=== PATIENT | female | born 1965 | race African-American/Black ===

== ENCOUNTER → 2017-02-04 | Outpatient (CLI) | payer OTHER ==
[2016-09-25 11:05] VITALS: BP 142/97
[~2017-02-04] MED LIST: AMIT100T PO; ATEN50TA PO; BACL20TA PO; BUDE10.22 IH; BUSP15TA PO; CHOL20004 PO; CHOL500015 PO; CYCL10TA2 PO; DICL50TA2 PO; FLUO40CA9 PO; FLUT16SP2 NS; FURO-69 PO; GABA-586 PO; HYDR-971 PO; IBUP-1060 PO; LEVO200T PO; LIDO700A4 TP; LORA10TA3 PO; LOSA25TA4 PO; MILN1TAB PO; POTA20TA12 PO; PRED20TA PO; PROAIR HFA8.5 GM INH; QUET100T4 PO; RANI150T2 PO; TRAM50TA PO; TRAZ100T12 PO; VENL75CA PO; VENTOLIN HFA18 GM INH
--- NOTE | 2017-02-04 16:03 | KCIC ---
PROCEDURE MRI cervical spine without contrast. HISTORY Radiculopathy. Prior surgery. Symptoms have been present for a few months and are greater on the right. TECHNIQUE Sagittal T1, sagittal T2, sagittal STIR, axial T2, and axial T2 gradient sequences are provided. COMPARISON June 26, 2007. FINDINGS There is straightening of cervical lordosis but no subluxation. There is no marrow edema or worrisome marrow lesion. There is anterior cervical fusion which results in hardware artifact from C5 through C7. There is no cord signal abnormality. The cervicomedullary junction is unremarkable. Degenerative findings by individual level are as follows: C2-C3: There is uncinate process spurring and there is left facet hypertrophy. There is high-grade left and [id number] right foraminal narrowing C3-C4: Uncinate process spurring is greater on the right. There is a minimal disc bulge. There is no canal stenosis. There is mild to moderate right foraminal narrowing. C4-C5: Disc osteophyte complex and uncinate process spurring are noted. There is mild facet hypertrophy. Midline AP diameter of the thecal sac is 9 millimeters. This is mildly decreased and this is a change from prior. There is high-grade bilateral foraminal narrowing. C5-C6: There is hardware artifact. There is no definite canal or foraminal compromise. C6-C7: There is no definite canal or foraminal compromise. C7-T1: There is a disc bulge without canal or foraminal compromise T1-T2: There is no canal or foraminal compromise. T2-T3: There is left facet hypertrophy and probably mild left foraminal narrowing, level only evaluated in the sagittal plane. IMPRESSION 1. Degenerative changes in the cervical spine are most notable at C4-C5. 2. Anterior cervical fusion results in hardware artifact from C5 through C7. Electronically signed by: Fuentes Paredes MD (Feb 04, 2017 16:02:06)
== END | disposition home or self-care (01) ==
LOC: KCIC MRI 14:24
PROVIDERS: ATTEND Neurological Surgery
DX: M47.892 Other spondylosis, cervical region (principal); M43.22 Fusion of spine, cervical region
CPT/HCPCS: 72141

== ENCOUNTER 2017-02-12 20:50 | Emergency (ER) | payer OTHER ==
[~2017-02-12] VITALS: Ht 167.6 cm; Wt 90.7 kg
[2017-02-12 21:08] LABS: BILIRUBIN,URINE NEGATIVE (NEG); GLUCOSE,URINE NEGATIVE (NEG); NITRITE,URINE NEGATIVE (NEG); PROTEIN,URINE NEGATIVE (NEG-TRACE); UROBILINOGEN,URINE 0.2 mg/dL (0.2 mg/dL)
[2017-02-12 21:14] LABS: BACTERIA,URINE FEW /HPF (0-FEW); RBC,URINE OCC /HPF (0-2); SQUAMOUS EPITHELIAL CELL,UR MOD /LPF
--- NOTE | 2017-02-12 21:27 | PHYS DOC ---
Past Medical History Past Medical History: Anxiety, Arthritis, COPD, Depression, Fibromyalgia, Hypertension, Sciatica, Sinusitis, Other Additional Past Medical Histor: Vit D deficiency, prediabetic, back pain, SPINAL STEN, drug seeking behavio Past Surgical History: Other Additional Past Surgical Histo: thyroid removed, UTERINE ABLATION, R hand sugery, carpal tunnel Alcohol Use: Occasionally Drug Use: None Adult General Chief Complaint Chief Complaint: BACK PAIN OR INJURY HPI HPI Patient is a 51 year old female who presents with complaint of severe back pain. Patient states that her pain started earlier today. Patient does not remember any inciting injury or trauma to her back. Patient does have history of low back pain and sciatica. Patient states that her pain is confined to her low back and left flank. Patient denies any abdominal pain, nausea, vomiting, fevers, or diarrhea. Patient is not experiencing any loss of sensation to her lower extremities, groin, or loss of bowel or bladder control. Patient rates pain as 8 out of 10. Patient has taken ibuprofen with no relief at home. Patient states that she has followed in the pain management clinic. Patient last was seen in pain management clinic in September 2016. Patient states currently she is following with Dr. Tran of neurosurgery due to complications with degenerative disease of the cervical spine. Review of Systems Review of Systems Constitutional: Denies fever or chills [] Eyes: Denies change in visual acuity, redness, or eye pain [] HENT: Denies nasal congestion or sore throat [] Respiratory: Denies cough or shortness of breath [] Cardiovascular: Denies chest pain or edema [] GI: Denies abdominal pain, nausea, vomiting, bloody stools or diarrhea [] : Denies dysuria or hematuria [] Musculoskeletal: Back pain [] Integument: Denies rash or skin lesions [] Neurologic: Denies headache, focal weakness or sensory changes [] Current Medications Current Medications Current Medications Medications (Trade) Dose Ordered Sig/Marito Start Time Stop Time Status Last Admin Dose Admin Acetaminophen/ Hydrocodone Bitart (Lortab 10/325) 1 tab 1X ONCE 02/12/17 22:00 02/12/17 22:01 DC 02/12/17 21:34 1 TAB Orphenadrine Citrate (Norflex) 60 mg 1X ONCE 02/12/17 22:00 02/12/17 22:01 DC 02/12/17 21:34 60 MG Prednisone (Prednisone) 40 mg 1X ONCE 02/12/17 22:00 02/12/17 22:01 DC 02/12/17 21:34 40 MG Allergies Allergies Allergies Coded Allergies Type Severity Reaction Last Updated Verified aspirin Allergy Unknown DICLOFENAC is home med 09/25/16 Yes Physical Exam Physical Exam Constitutional: Alert, afebrile, appears in moderate to severe discomfort. [] HENT: Normocephalic, atraumatic, bilateral external ears normal, oropharynx moist, no oral exudates, nose normal. [] Eyes: PERRLA, EOMI, conjunctiva normal, no discharge. [] Neck: Normal range of motion, no tenderness, supple, no stridor. [] Cardiovascular:Heart rate regular rhythm, no murmur [] Lungs & Thorax: Bilateral breath sounds clear to auscultation [] Abdomen: Bowel sounds normal, soft, no tenderness, no masses, no pulsatile masses. [] Skin: Warm, dry, no erythema, no rash. [] Back: No midline tenderness, left paraspinous muscle tenderness along mid and lower lumbar spine, no CVA tenderness, no flank ecchymosis. [] Extremities: No tenderness, no cyanosis, no clubbing, ROM intact, no edema. [] Neurologic: Alert and oriented X 3, normal motor function, normal sensory function, no focal deficits noted. [] Current Patient Data Vital Signs Vital Signs Date Time Temp Pulse Resp B/P Pulse Ox O2 Delivery O2 Flow Rate FiO2 02/12/17 21:33 64 18 157/89 94 Room Air 02/12/17 21:06 97.6 97.6 Lab Values Laboratory Tests Test 02/12/17 21:00 Urine Collection Type Unknown Urine Color Yellow Urine Clarity Clear Urine pH 6.0 Urine Specific [place] 1.010 Urine Protein Negativemg/dL (NEG-TRACE) Urine Glucose (UA) Negativemg/dL (NEG) Urine Ketones (Stick) Negativemg/dL (NEG) Urine Blood Negative (NEG) Urine Nitrite Negative (NEG) Urine Bilirubin Negative (NEG) Urine Urobilinogen Dipstick 0.2mg/dL (0.2 mg/dL) Urine Leukocyte Esterase Negative (NEG) Urine RBC Occ/HPF (0-2) Urine WBC 1-4/HPF (0-4) Urine Squamous Epithelial Cells Mod/LPF Urine Bacteria Few/HPF (0-FEW) EKG EKG Not performed [] Radiology/Procedures Radiology/Procedures Not performed [] Course & Med Decision Making Course & Med Decision Making Pertinent Labs and Imaging studies reviewed. (See chart for details) Patient was given IM Norflex, oral [place], and Prednisone. On reevaluation, patient states that she feels better at this time and would like to go home. The patient will be discharged with prescriptions for [place], Flexeril, and prednisone. Advise follow-up in 3-5 days with patient's primary doctor and return to the emergency department for any worsening symptoms. Patient voiced understanding and in agreement with treatment plan. Dragon Disclaimer Dragon Disclaimer This electronic medical record was generated, in whole or in part, using a voice recognition dictation system. Departure Departure Impression: Primary Impression: Low back strain Disposition: 01 HOME, SELF-CARE Condition: IMPROVED Referrals: NO PCP (PCP) Patient Instructions: Back Pain, Adult Additional Instructions: Follow-up with your primary doctor in 3-5 days. Return to the emergency department for any worsening symptoms. Scripts Prednisone 20 Mg Tablet1 Tab PO BID #8 TAB Prov:CHANELL DUCKWORTH MD 02/12/17 Cyclobenzaprine Hcl 10 Mg Tablet1 Tab PO TID PRN MUSCLE SPASMS #30 TAB Prov:CHANELL DUCKWORTH MD 02/12/17 Hydrocodone/Apap 5-325 ([place] 5-325 Tablet)1 Each Tablet1-2 Tab PO Q4-6HRS PRN PAIN #20 TAB Prov:CHANELL DUCKWORTH MD 02/12/17 Problem Qualifiers Primary Impression: Low back strain Encounter type: initial encounter Qualified Code: S39.012A - Strain of muscle, fascia and tendon of lower back, initial encounter CHANELL DUCKWORTH MD Feb 12, 2017 21:27
[2017-02-12 21:33] VITALS: BP 157/89
[2017-02-12] MEDS ORDERED: predniSONE 20 MG TABLET PO ONE (22:00)
[2017-02-12] MEDS ORDERED: HYDROCODONE/APAP 10/325 TABLET. PO ONE (22:00)
[2017-02-12] MEDS ORDERED: ORPHENADRINE CITRATE 60 MG/2 ML VIAL. IM ONE (22:00)
[2017-02-12] MEDS ORDERED: PRED20TA PO (22:19)
[2017-02-12] MEDS ORDERED: CYCL10TA2 PO (22:19)
[2017-02-12] MEDS ORDERED: HYDR-971 PO (22:19)
== END 2017-02-12 22:25 | disposition home or self-care (01) ==
LOC: ER 20:50
DX: S39.012A Strain of muscle, fascia and tendon of lower back, initial encounter (principal); F32.9 Major depressive disorder, single episode, unspecified; F41.9 Anxiety disorder, unspecified; I10 Essential (primary) hypertension; J44.9 Chronic obstructive pulmonary disease, unspecified; M79.7 Fibromyalgia; M19.90 Unspecified osteoarthritis, unspecified site; Z88.6 Allergy status to analgesic agent
CPT/HCPCS: 81001; 81025; 96372; 99284; J2360; J7512

== ENCOUNTER 2017-05-08 23:50 | Emergency (ER) | payer OTHER ==
[~2017-05-08] VITALS: Ht 167.6 cm; Wt 90.7 kg
[~2017-05-08 23:50] MED LIST changes: -CHOL20004 PO; +CHOL200074 PO; -CHOL500015 PO; +CHOL500045 PO
[2017-05-09 00:27] VITALS: BP 184/102
[2017-05-09] MEDS ORDERED: HYDR-971 PO (00:49)
[2017-05-09] MEDS ORDERED: CYCL5TAB PO (00:49)
--- NOTE | 2017-05-09 00:49 | PHYS DOC ---
Past Medical History Past Medical History: Anxiety, Arthritis, COPD, Depression, Fibromyalgia, Hypertension, Sciatica, Sinusitis, Other Additional Past Medical Histor: Vit D deficiency, prediabetic, back pain, SPINAL STEN, drug seeking behavio Past Surgical History: Other Additional Past Surgical Histo: thyroid removed, UTERINE ABLATION, R hand sugery, carpal tunnel Alcohol Use: Occasionally Drug Use: None Adult General Chief Complaint Chief Complaint: LOWER BACK PAIN OR INJURY HPI HPI Patient is a 51 year old female who presents with lower back pain that feels like exacerbation of sciatica. She reports 2 day history of increased radiating pain from lower back to RLE. She denies specific injury. She denies fevers/chills, abdominal pain, bowel/bladder incontinence/retention, saddle anesthesia, lower extremity numbness/weakness, dysuria/hematuria. Review of Systems Review of Systems Constitutional: Denies fever or chills HENT: Denies nasal congestion or sore throat Respiratory: Denies cough or shortness of breath Cardiovascular: Denies chest pain GI: Denies abdominal pain, nausea, vomiting : Denies dysuria or hematuria Musculoskeletal: Reports back pain Integument: Denies rash Neurologic: Denies headache, focal weakness or sensory changes Current Medications Current Medications Current Medications Medications (Trade) Dose Ordered Sig/Marito Start Time Stop Time Status Last Admin Dose Admin Acetaminophen/ Hydrocodone Bitart (Lortab 5/325) 2 tab 1X ONCE 05/09/17 01:00 05/09/17 01:01 DC 05/09/17 00:53 2 TAB Cyclobenzaprine HCl (Flexeril) 10 mg 1X ONCE 05/09/17 01:00 05/09/17 01:01 DC 05/09/17 00:53 10 MG Allergies Allergies Allergies Coded Allergies Type Severity Reaction Last Updated Verified aspirin Allergy Mild DICLOFENAC is home med 05/09/17 Yes Physical Exam Physical Exam Constitutional: obese, no acute distress, non-toxic appearance. HENT: Normocephalic, atraumatic, bilateral external ears normal, oropharynx moist, nose normal. Eyes: conjunctiva normal, no discharge. Neck: supple, no stridor. Cardiovascular: RRR, no murmurs, no edema. Lungs & Thorax: LCTAB, no wheezing, no respiratory distress. Abdomen: soft, nontender, nondistended. Skin: Warm, dry, no erythema, no rash. Back: no focal spinal tenderness, no CVA tenderness, right buttock & hip tenderness without overlying skin changes, pain increases with straight leg raise. Extremities: distal pulses intact bilaterally to lower extremities, symmetric strength/sensation to lower extremities. Neurologic: Alert and oriented X 3, no focal deficits noted. Psychologic: Affect normal, judgement normal, mood normal. Current Patient Data Vital Signs Vital Signs Date Time Temp Pulse Resp B/P (MAP) Pulse Ox O2 Delivery O2 Flow Rate FiO2 05/09/17 00:53 Room Air 05/09/17 00:27 97.8 69 16 100 97.8 EKG EKG [] Radiology/Procedures Radiology/Procedures [] Course & Med Decision Making Course & Med Decision Making Pertinent Labs and Imaging studies reviewed. (See chart for details) The patient presents with exacerbation of sciatica. Recommend rest but not bedrest, ice/heat, ibuprofen TID, flexeril for muscle spasm & norco for severe breakthrough pain. No drinking alcohol or driving while taking norco. Follow up with PCP if not improving in 1-2 weeks. Come back for symptoms of cauda equina syndrome or otherwise worsening condition. Discharged home in stable condition. [] Dragon Disclaimer Dragon Disclaimer This electronic medical record was generated, in whole or in part, using a voice recognition dictation system. Departure Departure Impression: Primary Impression: Sciatica Disposition: 01 HOME, SELF-CARE Condition: STABLE Referrals: NO PCP (PCP) Patient Instructions: Sciatica, [id number] Additional Instructions: You were seen in the emergency department today for sciatica. Please try to stretch, use heating pad. Take ibuprofen. Use Flexeril for muscle spasm and [place] for severe breakthrough pain. No drinking alcohol or driving while taking [place]. Follow-up with primary care physician if symptoms persist in one week. Return to the emergency department for loss of control of bowels or bladder, numbness in the groin, numbness or weakness in legs, any otherwise worsening condition. Scripts Hydrocodone/Apap 5-325 (NORCO 5-325 TABLET) 1 Each Tablet 1 TAB PO PRN Q6HRS Y for PAIN, #10 TAB 0 Refills Prov: JAMES MAHARAJ MD 05/09/17 Cyclobenzaprine Hcl (CYCLOBENZAPRINE HCL) 5 Mg Tablet 1 TAB PO TID Y for MUSCLE SPASMS, #10 TAB Prov: JAMES MAHARAJ MD 05/09/17 JAMES MAHARAJ MD May 09, 2017 00:49
[2017-05-09] MEDS ORDERED: CYCLOBENZAPRINE 10 MG TABLET. PO ONE (01:00)
[2017-05-09] MEDS ORDERED: HYDROcodone/APAP 5/325MG 1 TAB TABLET PO ONE (01:00)
== END 2017-05-09 00:55 | disposition home or self-care (01) ==
LOC: ER 23:50
DX: M54.41 Lumbago with sciatica, right side (principal); F41.9 Anxiety disorder, unspecified; M19.90 Unspecified osteoarthritis, unspecified site; J44.9 Chronic obstructive pulmonary disease, unspecified; F32.9 Major depressive disorder, single episode, unspecified; M79.7 Fibromyalgia; I10 Essential (primary) hypertension; E66.9 Obesity, unspecified; Z88.6 Allergy status to analgesic agent; Z68.32 Body mass index [BMI] 32.0-32.9, adult
CPT/HCPCS: 99283

== ENCOUNTER 2017-05-23 10:12 | Emergency (ER) | payer OTHER ==
[~2017-05-23] VITALS: Ht 167.6 cm; Wt 90.7 kg
[~2017-05-23 10:12] MED LIST changes: +CYCL5TAB PO
[2017-05-23 10:58] LABS: BASO % 0 % (0-3); EOS % 1 % (0-3); HEMOGLOBIN 13.4 g/dL (12.0-15.5); LYMPH % 28 % (24-48); MEAN CORPUSCULAR HEMOGLOBIN 29 pg (25-35); MEAN CORPUSCULAR HGB CONC 34 g/dL (31-37); MEAN CORPUSCULAR VOLUME 85 fL (79-100); MONO % 7 % (0-9); NEUT % 64 % (31-73); PLATELET COUNT 255 x10^3/uL (140-400); RED BLOOD COUNT 4.59 x10^6/uL (3.50-5.40); RED CELL DISTRIBUTION WIDTH 13.6 % (11.5-14.5); WHITE BLOOD COUNT 7.2 x10^3/uL (4.0-11.0)
[2017-05-23 10:58] LABS: BILIRUBIN,URINE NEGATIVE (NEG); GLUCOSE,URINE NEGATIVE (NEG); NITRITE,URINE NEGATIVE (NEG); PH,URINE 6.5; PROTEIN,URINE NEGATIVE (NEG-TRACE); UROBILINOGEN,URINE 0.2 mg/dL (0.2 mg/dL)
[2017-05-23] MEDS ORDERED: MORPHINE SULFATE 10 MG/ML VIAL. IV ONE (11:15)
[2017-05-23] MEDS ORDERED: diazePAM 5 MG TABLET PO ONE (11:15)
[2017-05-23 11:22] LABS: RBC,URINE 0 /HPF (0-2)
[2017-05-23 11:23] LABS: BACTERIA,URINE MODERATE /HPF (0-FEW); SQUAMOUS EPITHELIAL CELL,UR MOD /LPF; WBC,URINE OCC /HPF (0-4)
[2017-05-23 11:52] LABS: CALCIUM 8.5 mg/dL (8.5-10.1); CREATININE 0.8 mg/dL (0.6-1.0); GFR 92.2; POTASSIUM 3.8 mmol/L (3.5-5.1)
[2017-05-23 11:58] LABS: ALBUMIN 3.7 g/dL (3.4-5.0); TOTAL BILIRUBIN 0.5 mg/dL (0.2-1.0); TOTAL PROTEIN 7.3 g/dL (6.4-8.2)
[2017-05-23 12:38] VITALS: BP 109/65
--- NOTE | 2017-05-23 12:50 | RAD ---
Indication bilateral flank pain for 3 days. Noncontrast images through the abdomen and pelvis were obtained. Note is made of a previous examination 7 years ago. An acute finding at either lung base is not seen. There is some minimal irregularity at the right lung base laterally, on the first 4 images, which is probably chronic and reflective of scar. Other etiologies are not entirely excluded. Clinical correlation as to the necessity for additional imaging or follow-up advised. The liver and spleen appear unremarkable. The gallbladder appears grossly normal. No significant pancreatic abnormality is seen. There is a very slightly prominent pancreatic duct. No adrenal anomalies are seen and the kidneys appear unremarkable. The left kidney is slightly larger than the right similar to the previous exam. There are no renal calculi seen on either side. There is no hydronephrosis hydroureter or calcification seen along the course of either ureter. The appendix is seen in the right lower quadrant and appears unremarkable. No acute finding is seen in the pelvis. IMPRESSION: No acute or significant finding seen in the abdomen or pelvis. Probable scarring right lung base. See above discussion PQRS Compliance Statement: One or more of the following individualized dose reduction techniques were utilized for this examination: 1. Automated exposure control 2. Adjustment of the mA and/or kV according to patient size 3. Use of iterative reconstruction technique
[2017-05-23] MEDS ORDERED: METH-37 PO (13:08)
--- NOTE | 2017-05-23 13:09 | PHYS DOC ---
Past Medical History Past Medical History: Anxiety, Arthritis, COPD, Depression, Fibromyalgia, Hypertension, Sciatica, Sinusitis, Other Additional Past Medical Histor: Vit D deficiency, prediabetic, back pain, SPINAL STEN, drug seeking behavio Past Surgical History: Other Additional Past Surgical Histo: thyroid removed, UTERINE ABLATION, R hand sugery, carpal tunnel Alcohol Use: Occasionally Drug Use: None Adult General Chief Complaint Chief Complaint: FLANK PAIN HPI HPI Patient is a 51 year old female with history of fibromyalgia, hypertension, depression, anxiety, who presents today complaining of moderate bilateral mid back pain nonradiating in nature worse on movement that began 3 days ago. Patient denies any loss of bowel bladder function. She states she also has history of chronic back pain. Patient denies any trauma. She states she just came from the mother-baby floor where her daughter gave . Review of Systems Review of Systems Constitutional: Denies fever or chills [] Eyes: Denies change in visual acuity, redness, or eye pain [] HENT: Denies nasal congestion or sore throat [] Respiratory: Denies cough or shortness of breath [] Cardiovascular: No additional information not addressed in HPI [] GI: Denies abdominal pain, nausea, vomiting, bloody stools or diarrhea [] : Denies dysuria or hematuria [] Musculoskeletal: back pain Integument: Denies rash or skin lesions [] Neurologic: Denies headache, focal weakness or sensory changes [] Endocrine: Denies polyuria or polydipsia [] Current Medications Current Medications Current Medications Medications (Trade) Dose Ordered Sig/Marito Start Time Stop Time Status Last Admin Dose Admin Diazepam (Valium) 5 mg 1X ONCE 05/23/17 11:15 05/23/17 11:16 DC 05/23/17 10:52 5 MG Morphine Sulfate 5 mg 1X ONCE 05/23/17 11:15 05/23/17 11:16 DC 05/23/17 10:52 5 MG Allergies Allergies Allergies Coded Allergies Type Severity Reaction Last Updated Verified aspirin Allergy Mild DICLOFENAC is home med 05/09/17 Yes Physical Exam Physical Exam Constitutional: Well developed, well nourished, no acute distress, non-toxic appearance. [] HENT: Normocephalic, atraumatic, bilateral external ears normal, oropharynx moist, no oral exudates, nose normal. [] Eyes: PERRLA, EOMI, conjunctiva normal, no discharge. [] Neck: Normal range of motion, no tenderness, supple, no stridor. [] Cardiovascular:Heart rate regular rhythm, no murmur [] Lungs & Thorax: Bilateral breath sounds clear to auscultation [] Abdomen: Bowel sounds normal, soft, no tenderness, no masses, no pulsatile masses. [] Skin: Warm, dry, no erythema, no rash. [] Back: No tenderness, no CVA tenderness. [] Extremities: No tenderness, no cyanosis, no clubbing, ROM intact, no edema. [] Neurologic: Alert and oriented X 3, normal motor function, normal sensory function, no focal deficits noted. [] Psychologic: Affect normal, judgement normal, mood normal. [] Current Patient Data Vital Signs Vital Signs Date Time Temp Pulse Resp B/P (MAP) Pulse Ox O2 Delivery O2 Flow Rate FiO2 05/23/17 11:27 66 120/69 (86) 100 Room Air 05/23/17 10:52 20 05/23/17 10:19 97.9 97.9 Lab Values Laboratory Tests Test 05/23/17 09:38 05/23/17 10:30 05/23/17 10:50 05/23/17 11:40 POC Urine HCG, Qualitative Hcg negative (Negative) Urine Collection Type Unknown Urine Color Yellow Urine Clarity Clear Urine pH 6.5 Urine Specific [place] 1.015 Urine Protein Negative mg/dL (NEG-TRACE) Urine Glucose (UA) Negative mg/dL (NEG) Urine Ketones (Stick) Negative mg/dL (NEG) Urine Blood Negative (NEG) Urine Nitrite Negative (NEG) Urine Bilirubin Negative (NEG) Urine Urobilinogen Dipstick 0.2 mg/dL (0.2 mg/dL) Urine Leukocyte Esterase Trace (NEG) Urine RBC 0 /HPF (0-2) Urine WBC Occ /HPF (0-4) Urine Squamous Epithelial Cells Mod /LPF Urine Bacteria Moderate /HPF (0-FEW) Urine Mucus Mod /LPF White Blood Count 7.2 x10^3/uL (4.0-11.0) Red Blood Count 4.59 x10^6/uL (3.50-5.40) Hemoglobin 13.4 g/dL (12.0-15.5) Hematocrit 39.0 % (36.0-47.0) Mean Corpuscular Volume 85 fL (79-100) Mean Corpuscular Hemoglobin 29 pg (25-35) Mean Corpuscular Hemoglobin Concent 34 g/dL (31-37) Red Cell Distribution Width 13.6 % (11.5-14.5) Platelet Count 255 x10^3/uL (140-400) Neutrophils (%) (Auto) 64 % (31-73) Lymphocytes (%) (Auto) 28 % (24-48) Monocytes (%) (Auto) 7 % (0-9) Eosinophils (%) (Auto) 1 % (0-3) Basophils (%) (Auto) 0 % (0-3) Neutrophils # (Auto) 4.6 x10^3uL (1.8-7.7) Lymphocytes # (Auto) 2.0 x10^3/uL (1.0-4.8) Monocytes # (Auto) 0.5 x10^3/uL (0.0-1.1) Eosinophils # (Auto) 0.0 x10^3/uL (0.0-0.7) Basophils # (Auto) 0.0 x10^3/uL (0.0-0.2) Sodium Level 142 mmol/L (136-145) Potassium Level 3.8 mmol/L (3.5-5.1) Chloride Level 106 mmol/L (98-107) Carbon Dioxide Level 29 mmol/L (21-32) Anion Gap 7 (6-14) Blood Urea Nitrogen 11 mg/dL (7-20) Creatinine 0.8 mg/dL (0.6-1.0) Estimated GFR (Cockcroft-Gault) 92.2 BUN/Creatinine Ratio 14 (6-20) Glucose Level 105 mg/dL (70-99) H Calcium Level 8.5 mg/dL (8.5-10.1) Total Bilirubin 0.5 mg/dL (0.2-1.0) Aspartate Amino Transferase (AST) 11 U/L (15-37) L Alanine Aminotransferase (ALT) 15 U/L (14-59) Alkaline Phosphatase 71 U/L (46-116) Total Protein 7.3 g/dL (6.4-8.2) Albumin 3.7 g/dL (3.4-5.0) Albumin/Globulin Ratio 1.0 (1.0-1.7) Lipase 293 U/L (73-393) Laboratory Tests 05/23/17 10:50 Laboratory Tests 05/23/17 11:40 EKG EKG [] Radiology/Procedures Radiology/Procedures [] Course & Med Decision Making Course & Med Decision Making Pertinent Labs and Imaging studies reviewed. (See chart for details) This is a 51-year-old female patient presenting today for bilateral thoracic pain. She was worked up for kidney stone and UTI which were negative. She was discharged with Robaxin. She is instructed follow up with her own PCP in 1-2 weeks. Dragon Disclaimer Dragon Disclaimer This electronic medical record was generated, in whole or in part, using a voice recognition dictation system. Departure Departure Impression: Primary Impression: Thoracic back pain Disposition: HOME, SELF-CARE Condition: STABLE Referrals: UNKNOWN PCP NAME (PCP) Follow-up with the primary care doctor as soon as he can Patient Instructions: Back Pain, Adult Additional Instructions: You were seen for thoracic back pain. Your work up in the emergency room including CT was negative for any acute findings. Take the prescribed medicines as needed and follow-up with your doctor as soon as you can. Scripts Methocarbamol (ROBAXIN) 500 Mg Tablet 1 TAB PO TID, #20 TAB Prov: LIBBY LARKIN MARCIA 05/23/17 Problem Qualifiers Primary Impression: Thoracic back pain Chronicity: acute Back pain laterality: bilateral Qualified Codes: M54.6 - Pain in thoracic spine LIBBY LARKIN MARCIA May 23, 2017 13:08
== END 2017-05-23 13:19 | disposition home or self-care (01) ==
LOC: ER 10:12
DX: M54.6 Pain in thoracic spine (principal); G89.29 Other chronic pain; M19.90 Unspecified osteoarthritis, unspecified site; J44.9 Chronic obstructive pulmonary disease, unspecified; M79.7 Fibromyalgia; F32.9 Major depressive disorder, single episode, unspecified; I10 Essential (primary) hypertension; G56.00 Carpal tunnel syndrome, unspecified upper limb; Z88.6 Allergy status to analgesic agent
CPT/HCPCS: 36415; 74176; 80053; 81001; 81025; 83690; 85027; 87086; 96374; 99285; J2270

== ENCOUNTER → 2017-06-07 | Outpatient (CLI) | payer OTHER ==
[2017-05-23 12:38] VITALS: BP 109/65
[~2017-06-07] MED LIST changes: +METH-37 PO
--- NOTE | 2017-06-07 11:51 | KCIC ---
MRI Lumbar Spine without contrast History: Low back pain radiating into both legs Technique: Multiplanar, multi sequential noncontrast MR imaging was performed of the lumbar spine. Contrast: None Comparison: None Findings: Lumbar vertebral body stature and AP alignment are maintained. Conus terminates at L2. There is mild degenerative disc disease L5-S1, mild disc desiccation L3-4 and L4-5. There is no significant marrow edema. L3-L4: There is prominence of posterior epidural fat. There is mild buckling of the ligamentum flavum and [id number] facet hypertrophic change. Spinal canal and neural foramina are adequate. L4-L5: There is prominence of posterior epidural fat, mild buckling of the ligamentum flavum, and facet degenerative change. There is very mild narrowing of the far left lateral recess from posteriorly. Neural foramina are adequate. L5-S1: There is a broad posterior protrusion on the order of 5 mm AP by 6 to 7 mm CC by 10 mm transverse. There is moderate narrowing of the far lateral recesses bilaterally greater on the left, contact of the descending S1 nerve roots. There is mild facet degenerative change. There is [id number], right greater than left neural foramina compromise.. Impression: 1. There is broad posterior protrusion at L5-S1 which contributes to moderate narrowing of the far lateral recesses bilaterally at this level with contact of the descending S1 nerve roots. 2. There is [id number], right greater than left L5-S1 neural foramina compromise. 3. There is mild degenerative disc disease L5-S1, minimal disc desiccation at more superior levels. Electronically signed by: Kristopher Castorena MD (06/07/2017 11:48 AM) [id number]
== END | disposition home or self-care (01) ==
LOC: KCIC MRI 10:07
PROVIDERS: ATTEND Neurological Surgery
DX: M51.37 Other intervertebral disc degeneration, lumbosacral region (principal)
CPT/HCPCS: 72148

== ENCOUNTER 2018-07-11 11:04 | Emergency (ER) | payer OTHER ==
[~2018-07-11] VITALS: Ht 167.6 cm; Wt 90.7 kg
[~2018-07-11 11:04] MED LIST changes: -LOSA25TA4 PO; +LOSA25TA5 PO; +TRAZ-86 PO; -TRAZ100T12 PO
[2018-07-11] MEDS ORDERED: diazePAM 5 MG TABLET PO ONE (11:45)
[2018-07-11] MEDS ORDERED: MORPHINE SULFATE 10 MG/ML VIAL. IM ONE (11:45)
--- NOTE | 2018-07-11 11:56 | PHYS DOC ---
Past Medical History Past Medical History: Anxiety, Arthritis, COPD, Depression, Fibromyalgia, Hypertension, Sciatica, Sinusitis, Other Additional Past Medical Histor: Vit D deficiency,prediabetic,back pain,SPINAL STEN,drug seeking behavior Past Surgical History: Other Additional Past Surgical Histo: thyroid removed,UTERINE ABLATION,R hand sugery, carpal tunnel Additional Information: 0.5 PPD Alcohol Use: Occasionally Drug Use: None Adult General Chief Complaint Chief Complaint: LOWER BACK PAIN OR INJURY HPI HPI Patient is a 52 year old female with a history of hypertension, depression, COPD, anxiety, depression, who presents today complaining of 10 out of 10 right low back pain radiating to the buttock that began 2 days ago. Patient states she has history of chronic sciatica. She states she ran out of her bp and pain medications a while back and could not fill the rx because she did not have insurance, she states she follow sup with neurosurgeon Dr. Joel. Patient states she is currently taking ibuprofen with no relief. She states she recently got insurance. Patient denies any known injury. Denies any loss of bowel bladder function. Denies any weakness. Review of Systems Review of Systems Constitutional: Denies fever or chills [] Eyes: Denies change in visual acuity, redness, or eye pain [] HENT: Denies nasal congestion or sore throat [] Respiratory: Denies cough or shortness of breath [] Cardiovascular: No additional information not addressed in HPI [] GI: Denies abdominal pain, nausea, vomiting, bloody stools or diarrhea [] : Denies dysuria or hematuria [] Musculoskeletal: Reports right low back pain radiating to the right buttock. Integument: Denies rash or skin lesions [] Neurologic: Denies headache, focal weakness or sensory changes [] All other systems were reviewed and found to be within normal limits, except as documented in this note. Current Medications Current Medications Current Medications Medications (Trade) Dose Ordered Sig/Marito Start Time Stop Time Status Last Admin Dose Admin Atenolol (Tenormin) 100 mg 1X ONCE 07/11/18 12:00 07/11/18 12:01 DC Diazepam (Valium) 5 mg 1X ONCE 07/11/18 11:45 07/11/18 11:46 DC 07/11/18 11:46 5 MG Losartan Potassium (Cozaar) 100 mg DAILY 07/11/18 12:00 Morphine Sulfate (Morphine Sulfate) 5 mg 1X ONCE 07/11/18 11:45 07/11/18 11:46 DC 07/11/18 11:47 5 MG Allergies Allergies Allergies Coded Allergies Type Severity Reaction Last Updated Verified aspirin Allergy Mild DICLOFENAC is home med 05/09/17 Yes Physical Exam Physical Exam Constitutional: Well developed, well nourished, no acute distress, non-toxic appearance. [] HENT: Normocephalic, atraumatic, bilateral external ears normal, oropharynx moist, no oral exudates, nose normal. [] Eyes: PERRLA, EOMI, conjunctiva normal, no discharge. [] Neck: Normal range of motion, no tenderness, supple, no stridor. [] Cardiovascular:Heart rate regular rhythm, no murmur [] Lungs & Thorax: Bilateral breath sounds clear to auscultation [] Abdomen: Bowel sounds normal, soft, no tenderness, no masses, no pulsatile masses. [] Skin: Warm, dry, no erythema, no rash. [] Back: Moderate tenderness on the right SI joint, no midline lumbar spine tenderness, no CVA tenderness. Unable to do straight leg raises because patient is standing for comfort Extremities: No tenderness, no cyanosis, no clubbing, ROM intact, no edema. [] Neurologic: Alert and oriented X 3, normal motor function, normal sensory function, no focal deficits noted. [] Psychologic: Affect normal, judgement normal, mood normal. [] Current Patient Data Vital Signs Vital Signs Date Time Temp Pulse Resp B/P (MAP) Pulse Ox O2 Delivery O2 Flow Rate FiO2 07/11/18 11:47 16 97 Room Air 07/11/18 11:27 98.0 84 204/104 (137) 98.0 EKG EKG [] Radiology/Procedures Radiology/Procedures [] Course & Med Decision Making Course & Med Decision Making Pertinent Labs and Imaging studies reviewed. (See chart for details) This is a 52-year-old female patient presenting to the ED today with exacerbation of sciatica. Patient follows up with a neurosurgeon. She recently got medical insurance per her statement. We'll send her home with prescription for Valium and hydrocodone. Her blood pressure was 204/104, she has not taken her blood pressure medications for a while due to insurance. She was given her BP meds in the ED. She has no cardiac or neurological symptoms. Instructed to make sure she takes her blood pressure medicine as prescribed by her PCP. She has no cauda equina syndrome symptoms. She'll be discharged with instructions to follow-up with her own PCP and neurosurgeon as soon as she can. Tabatha Disclaimer Tabatha Disclaimer This electronic medical record was generated, in whole or in part, using a voice recognition dictation system. Departure Departure Impression: Primary Impression: Sciatica Additional Impression: Accelerated hypertension Disposition: HOME, SELF-CARE Condition: STABLE Referrals: UNKNOWN PCP NAME (PCP) follow up with your primary care doctor and neurosurgeon as soon as you can Patient Instructions: Hypertension, Sciatica Additional Instructions: You were evaluated in the emergency room for sciatica. Take the prescribed medications as ordered. Ensure you are taking your blood pressure medications crawford ordere. Follow-up with the neurosurgeon as well as primary care doctor as soon as possible. Scripts Diazepam (VALIUM) 5 Mg Tablet 5 MG PO TID, #15 TAB Prov: LIBBY LARKIN APRN 07/11/18 Hydrocodone/Apap 5-325 (NORCO 5-325 TABLET) 1 Each Tablet 1 TAB PO Q4-6HRS, #20 TAB Prov: LIBBY LARKIN APRN 07/11/18 Problem Qualifiers Primary Impression: Sciatica Laterality: right Qualified Codes: M54.31 - Sciatica, right side LIBBY LARKIN APRN Jul 11, 2018 11:56
[2018-07-11] MEDS ORDERED: ATENOLOL 50 MG TABLET. PO ONE (12:00)
[2018-07-11] MEDS ORDERED: LOSARTAN POTASSIUM 50 MG TABLET. PO SCH (12:00)
[2018-07-11 12:06] VITALS: BP 161/89
[2018-07-11] MEDS ORDERED: HYDR-971 PO (12:12)
[2018-07-11] MEDS ORDERED: DIAZ5TAB PO (12:12)
== END 2018-07-11 12:34 | disposition home or self-care (01) ==
LOC: ER 11:04
DX: M54.41 Lumbago with sciatica, right side (principal); I10 Essential (primary) hypertension; F41.9 Anxiety disorder, unspecified; M19.90 Unspecified osteoarthritis, unspecified site; J44.9 Chronic obstructive pulmonary disease, unspecified; F32.9 Major depressive disorder, single episode, unspecified; F17.200 Nicotine dependence, unspecified, uncomplicated; Z88.6 Allergy status to analgesic agent
CPT/HCPCS: 96372; 99284; J2270